=== PATIENT | male | born 1985 | race Caucasian/White ===

== ENCOUNTER 2019-03-03 12:22 | Emergency (ER) | payer MEDICAID ==
[~2019-03-03] VITALS: Ht 165.1 cm; Wt 67.6 kg
[2019-03-03 12:28] VITALS: Ht 165.1 cm; Wt 67.6 kg
[2019-03-03 14:28] VITALS: BP 118/72
== END 2019-03-03 14:48 | disposition home or self-care (01) ==
LOC: ED 12:22
DX: B34.9 Viral infection, unspecified (principal)
CPT/HCPCS: J0780; J1885